=== PATIENT | male | born 1950 | race Caucasian/White ===

== ENCOUNTER 2017-08-13 13:07 | Emergency (ER) | payer OTHER, MEDICARE ==
[2017-08-13] MEDS ORDERED: NS 1,000 ML IV ONE (13:58)
[2017-08-13] MEDS ORDERED: ONDANSETRON 4 MG/2 ML VIAL IVP ONE (14:00)
--- NOTE | 2017-08-13 14:04 | EDPHY ---
H & P Time Seen by Provider: 08/13/17 13:44 HPI/ROS: CHIEF COMPLAINT: Right flank pain HISTORY OF PRESENT ILLNESS: 67-year-old male with a history of kidney stones presents with right flank pain. Onset of severe right flank pain radiating to the right-sided abdomen at 2:00 a.m.. The pain has been waxing and waning since then. Associated with multiple episodes of vomiting. The pain is mild now. No aggrev/allev factors. History of 1 kidney stone [address] No prior [address] scan or other evaluation for kidney stones. REVIEW OF SYSTEMS: Constitutional: No fever, no chills Eyes: No visual changes ENT: No sore throat Respiratory: No cough, no shortness of breath Cardiac: No chest pain Genitourinary: No hematuria, no dysuria Musculoskeletal: No leg pain or swelling Skin: No rash Neurological: No headache, no weakness Psychiatric: No depression Past Medical/Surgical History: CAD Kidney stone Social History: , no recent alcohol Smoking Status: Current every day smoker Physical Exam: General Appearance: Alert, pleasant, appears in pain Eyes: Pupils equal and round, no conjunctival pallor ENT, Mouth: Mucous membranes moist Neck: Normal inspection Respiratory: Lungs are clear to auscultation Cardiovascular: Regular rate and rhythm Gastrointestinal: Abdomen is soft and nontender Back: No CVA tenderness Neurological: A&O, nonfocal, normal gait Skin: Warm and dry, no rash Extremities: Normal inspection Psychiatric: Mood and affect normal Constitutional: Initial Vital Signs Temperature (C) 36.3 C 08/13/17 13:17 Heart Rate 58 L 08/13/17 13:17 Respiratory Rate 18 08/13/17 13:17 Blood Pressure 155/76 H 08/13/17 13:17 O2 Sat (%) 92 08/13/17 13:17 O2 Delivery Mode Room Air Allergies/Adverse Reactions: No Known Allergies Allergy (Verified 08/14/17 16:30) Home Medications: Medication Instructions Recorded Aspirin 81mg (*) 08/13/17 Atenolol 08/13/17 Atorvastatin Calcium 08/13/17 Ondansetron Odt [Zofran Odt 4 mg 4 mg PO Q4 PRN #6 tab 08/13/17 (*)] Plavix 08/13/17 Tamsulosin HCl [Flomax 0.4 MG (RX)] 0.4 mg PO DAILY #4 cap 08/13/17 oxyCODONE/APAP 5/325 [Percocet 1 tab PO Q4 PRN #15 tab 08/13/17 5/325 (*)] Medical Decision Making - Diagnostics Imaging Results: Abdomen/Pelvis CT 08/13/17 13:58 Impression: 1. Moderate right hydroureteronephrosis secondary to a 4 mm obstructing calculus in the distal right ureter mid pelvis region. 2. No left nephrolithiasis or hydronephrosis. 3. Atherosclerotic aorta without aneurysm. 4. 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 5. No evidence of appendicitis. 6. Multiple indeterminate hypodensities in the liver for which follow up ultrasound abdomen is suggested. Attention: This CT examination is specifically designed to evaluate patients who are clinically suspected of having acute obstructive uropathy. This examination does not use radiographic contrast, and as such, provides only a limited evaluation of the abdomen, pelvis and retroperitoneum. If there is further clinical suspicion for pathological conditions other than obstructive uropathy, a complete CT evaluation of the abdomen and pelvis utilizing intravenous, oral, and rectal contrast should be considered. Findings and recommendations discussed with Emergency Department physician, Kim Daniels, at 1437 hours, 08/13/2017. Final report concurs with initial preliminary interpretation. ED Course/Re-evaluation: This patient presents with right flank pain, most consistent with renal colic. IV normal saline 1 L, morphine 6 mg IV and Zofran [address] abd/pelvis ordered b/c of severe pain and no prior radiologic studies. 3:30 p.m.-feels much better, no pain. Abd remains soft, NT. CT scan results discussed with the patient and his . Wants to go home. Return precautions given. Will follow up with Urology. Differential Diagnosis: Differential diagnosis includes though it is not limited to AAA, appendicitis, cholecystitis, diverticulitis, pyelonephritis, bowel perforation, small bowel obstruction. - Data Points Laboratory Results: Laboratory Results 08/13/17 14:08 08/13/17 14:08 Medications Given: Discontinued Medications Sodium Chloride (Ns) 1,000 mls @ 0 mls/hr IV EDNOW ONE; Wide Open PRN Reason: Protocol Stop: 08/13/17 13:59 Last Admin: 08/13/17 14:10 Dose: 1,000 mls Morphine Sulfate (Morphine) 6 mg IVP EDNOW ONE Stop: 08/13/17 14:15 Last Admin: 08/13/17 14:27 Dose: 6 mg Ondansetron HCl (Zofran) 4 mg IVP EDNOW ONE Stop: 08/13/17 14:01 Last Admin: 08/13/17 14:11 Dose: 4 mg Tamsulosin HCl (Flomax) 0.4 mg PO EDNOW ONE Stop: 08/13/17 15:39 Last Admin: 08/13/17 15:41 Dose: 0.4 mg Departure - Departure Disposition: Home, Routine, Self-Care Clinical Impression: Renal colic on right side Condition: Good Instructions: Kidney Stones (ED) Additional Instructions: 1. Drink plenty of fluids. 2. Percocet as needed for severe pain 3. Flomax as directed 4. Zofran as needed for nausea 5. Strain urine as directed 6. Return to the Emergency Department for intractable pain, fever or vomiting. 7. Followup with the urologist you have been referred to for unimproved symptoms. Referrals: Mohit Lea MD [Primary Care Provider] - As per Instructions Isai Cardenas MD [Medical Doctor] - As per Instructions (Call to make an appointment. ) Prescriptions: Ondansetron Odt [Zofran Odt 4 mg (*)] 4 mg PO Q4 PRN #6 tab PRN Reason: Nausea oxyCODONE/APAP 5/325 [Percocet 5/325 (*)] 1 tab PO Q4 PRN #15 tab PRN Reason: pain Tamsulosin HCl [Flomax 0.4 MG (RX)] 0.4 mg PO DAILY #4 cap
[2017-08-13 14:15] LABS: PLATELET COUNT 229 10^3/uL (150-400)
[2017-08-13] MEDS ORDERED: KETOROLAC 15 MG/1 ML SDV IVP ONE (15:28)
[2017-08-13] MEDS ORDERED: TAMSULOSIN HCL 0.4 MG CAP PO ONE (15:38)
[2017-08-13 15:42] VITALS: RESP 16
[2017-08-13 15:58] VITALS: BP 147/76; PULSE 57; TEMP 98.4; O2SAT 91
== END 2017-08-13 15:57 | disposition home or self-care (01) ==
DX: N23 Unspecified renal colic (principal); F17.200 Nicotine dependence, unspecified, uncomplicated; I25.10 Atherosclerotic heart disease of native coronary artery without angina pectoris; E86.9 Volume depletion, unspecified; Z79.82 Long term (current) use of aspirin
CPT/HCPCS: 74176; 96361; 96374; 96375; 99285; J2270; J2405

== ENCOUNTER 2017-08-14 16:28 | Emergency (ER) | payer OTHER, MEDICARE ==
[2017-08-14] MEDS ORDERED: NS 500 ML IV ONE (16:47)
[2017-08-14] MEDS ORDERED: LIDOCAINE 2% JELLY 20 ML (UROJECT) ONE (16:54)
--- NOTE | 2017-08-14 17:00 | EDPHY ---
H & P Time Seen by Provider: 08/14/17 16:40 HPI/ROS: CHIEF COMPLAINT: Urinary retention HISTORY OF PRESENT ILLNESS: The patient is a 67-year-old male who presents emergency department with urinary retention since 1:30 p.m.. The patient was seen in the emergency department yesterday. He was diagnosed with a right- sided kidney stone. Patient states that is flank pain and abdominal pain had completely resolved. He was doing well throughout the day until he developed urinary retention. He now has suprapubic abdominal pressure. He denies any discharge through his meatus. He has no flank pain. No fevers or chills. No nausea or vomiting. No previous urinary retention. No previous urethral or bladder procedures. REVIEW OF SYSTEMS: My complete review of systems is negative except as mentioned in the HPI. Past Medical/Surgical History: Includes kidney stone, coronary artery disease Past surgical history: Includes cardiac stents Social history: The patient smokes. He denies drugs or alcohol. Smoking Status: Current every day smoker Physical Exam: 36.4, 141/61, 64, 20, 93% on room air GENERAL: Mild discomfort, alert. HEENT: Eyes normal to inspection, normal pharynx, no signs of dehydration. NECK: No thyromegaly, no lymphadenopathy, supple. RESPIRATORY: Clear to auscultation bilaterally, no rales, rhonchi or wheezing. CVS: Regular rate and rhythm, no rubs, murmurs, or gallops. ABDOMEN: Soft, nontender, no organomegaly. Mild suprapubic distention. BACK: Normal to inspection, no CVA tenderness. SKIN: Normal color, no rash, warm, dry. No pallor. EXTREMITIES: No pedal edema, no calf tenderness, no Homans sign or cords, no joint swelling. NEURO/PSYCH: Alert and oriented, normal mood and affect, normal motor sensory exam. Constitutional: Initial Vital Signs Temperature (C) 36.4 C 08/14/17 16:31 Heart Rate 64 08/14/17 16:31 Respiratory Rate 20 08/14/17 16:31 Blood Pressure 141/61 H 08/14/17 16:31 O2 Sat (%) 93 08/14/17 16:31 O2 Delivery Mode Room Air Allergies/Adverse Reactions: No Known Allergies Allergy (Verified 08/14/17 16:30) Home Medications: Medication Instructions Recorded Aspirin 81mg (*) 08/13/17 Atenolol 08/13/17 Atorvastatin Calcium 08/13/17 Ondansetron Odt [Zofran Odt 4 mg 4 mg PO Q4 PRN #6 tab 08/13/17 (*)] Plavix 08/13/17 Tamsulosin HCl [Flomax 0.4 MG (RX)] 0.4 mg PO DAILY #4 cap 08/13/17 oxyCODONE/APAP 5/325 [Percocet 1 tab PO Q4 PRN #15 tab 08/13/17 5/325 (*)] Medical Decision Making ED Course/Re-evaluation: In the emergency department I discussed possible etiologies with the patient. I answered all his questions. An IV was placed. Laboratory studies were obtained. A Miller catheter was placed. I reviewed the patient's record from yesterday. Of note the patient's creatinine yesterday was 1.1., the patient was diagnosed with a 4 mm obstructing calculus in the distal right ureter. The Miller catheter was placed. The urine was clear. The patient was noted to have a normal creatinine. His white count is improved 11. He is mildly anemic with hematocrit 38. The patient was still having mild discomfort. He states it was"like the old pain."He was given Toradol 30 mg IV. UA: Positive red blood cells. 18 15: I rechecked the patient. He stated he was feeling much better. He had no abdominal tenderness on exam. His Miller was working. I explained that he would be discharged with the Miller. He was given follow-up with Urology. The patient currently has pain medication from his previous visit. He will return with worsening symptoms. He was given warnings prior to leaving. Differential Diagnosis: My differential includes but is not limited to kidney stone, ureteral stone, ureteral stone, urinary retention, urinary tract infection, cystitis - Data Points Laboratory Results: Laboratory Results 08/14/17 16:51 08/14/17 16:51 08/14/17 08/14/17 08/14/17 17:10 16:51 16:51 WBC 11.45 10^3/uL H 10^3/uL (3.80-9.50) RBC 3.90 10^6/uL L 10^6/uL (4.40-6.38) Hgb 13.2 g/dL L g/dL (13.7-17.5) Hct 38.3 % L % (40.0-51.0) MCV 98.2 fL fL (81.5-99.8) MCH 33.8 pg pg (27.9-34.1) MCHC 34.5 g/dL g/dL (32.4-36.7) RDW 11.9 % % (11.5-15.2) Plt Count 192 10^3/uL 10^3/uL (150-400) MPV 9.2 fL fL (8.7-11.7) Neut % (Auto) 77.1 % H % (39.3-74.2) Lymph % (Auto) 11.3 % L % (15.0-45.0) [place] % (Auto) 10.4 % % (4.5-13.0) Eos % (Auto) 0.7 % % (0.6-7.6) Baso % (Auto) 0.2 % L % (0.3-1.7) Nucleat RBC Rel Count 0.0 % % (0.0-0.2) Absolute Neuts (auto) 8.83 10^3/uL H 10^3/uL (1.70-6.50) Absolute Lymphs (auto) 1.29 10^3/uL 10^3/uL (1.00-3.00) Absolute Monos (auto) 1.19 10^3/uL H 10^3/uL (0.30-0.80) Absolute Eos (auto) 0.08 10^3/uL 10^3/uL (0.03-0.40) Absolute Basos (auto) 0.02 10^3/uL 10^3/uL (0.02-0.10) Absolute Nucleated RBC 0.00 10^3/uL 10^3/uL (0-0.01) Immature Gran % 0.3 % % (0.0-1.1) Immature Gran # 0.04 10^3/uL 10^3/uL (0.00-0.10) Sodium 136 mEq/L mEq/L (135-145) Potassium 4.2 mEq/L mEq/L (3.5-5.2) Chloride 104 mEq/L mEq/L (97-110) Carbon Dioxide 24 mEq/l mEq/l (22-31) Anion Gap 8 mEq/L mEq/L (8-16) BUN 17 mg/dL mg/dL (7-23) Creatinine 1.3 mg/dL mg/dL (0.7-1.3) Estimated GFR 55 Glucose 95 mg/dL mg/dL (70-100) Calcium 8.8 mg/dL mg/dL (8.5-10.4) Urine Color PALE YELLOW Urine Appearance HAZY Urine pH 5.0 (5.0-7.5) Ur Specific [place] 1.003 (1.002-1.030) Urine Protein NEGATIVE (NEGATIVE) Urine Ketones NEGATIVE (NEGATIVE) Urine Blood 3+ H (NEGATIVE) Urine Nitrate NEGATIVE (NEGATIVE) Urine Bilirubin NEGATIVE (NEGATIVE) Urine Urobilinogen NEGATIVE EU EU (0.2-1.0) Ur Leukocyte Esterase NEGATIVE (NEGATIVE) Urine RBC 5-10 /hpf H /hpf (0-3) Urine WBC 1-3 /hpf /hpf (0-3) Ur Epithelial Cells NONE SEEN /lpf /lpf (NONE-1+) Urine Bacteria TRACE /hpf H /hpf (NONE SEEN) Urine Glucose NEGATIVE (NEGATIVE) Medications Given: Discontinued Medications Sodium Chloride (Ns) 500 mls @ 0 mls/hr IV EDNOW ONE; Wide Open PRN Reason: Protocol Stop: 08/14/17 16:48 Last Admin: 08/14/17 17:07 Dose: 500 mls Ketorolac Tromethamine (Toradol) 30 mg IVP EDNOW ONE Stop: 08/14/17 17:17 Last Admin: 08/14/17 17:17 Dose: 30 mg Lidocaine (Uroject Lidocaine 2% Jelly) 20 ml UR EDNOW ONE Stop: 08/14/17 17:05 Last Admin: 08/14/17 17:08 Dose: 20 ml Departure - Departure Disposition: Home, Routine, Self-Care Clinical Impression: Urinary retention Condition: Good Instructions: Urinary Retention in Men (ED), Miller Catheter Placement and Care (ED) Additional Instructions: Return with increasing pain, malfunctioning Miller, fever, chills, vomiting or any other concerns. You can see in the provider in Dr. Cardenas is office. You should have your Miller taken out in 1-3 days. Referrals: Mohit Lea MD [Primary Care Provider] - As per Instructions Isai Cardenas MD [Medical Doctor] - 1-2 days without fail
[2017-08-14 17:03] LABS: PLATELET COUNT 192 10^3/uL (150-400)
[2017-08-14] MEDS ORDERED: LIDOCAINE 2% JELLY 20 ML (UROJECT) UR ONE (17:04)
[2017-08-14] MEDS ORDERED: KETOROLAC 30 MG/1 ML SDV ONE (17:15)
[2017-08-14] MEDS ORDERED: KETOROLAC 15 MG/1 ML SDV IVP ONE (17:16)
[2017-08-14 18:42] VITALS: BP 131/65
== END 2017-08-14 19:11 | disposition home or self-care (01) ==
PROC: 0T9B70Z Drainage of Bladder with Drainage Device, Via Natural or Artificial Opening (ICD-10-PCS; principal; 2017-08-14)
DX: R33.9 Retention of urine, unspecified (principal); E86.9 Volume depletion, unspecified; I25.10 Atherosclerotic heart disease of native coronary artery without angina pectoris; F17.200 Nicotine dependence, unspecified, uncomplicated; Z79.82 Long term (current) use of aspirin; Z95.5 Presence of coronary angioplasty implant and graft
CPT/HCPCS: 51702; 96374; 99284; J1885